=== PATIENT | female | born 1960 | race Caucasian/White ===

== ENCOUNTER 2017-08-03 01:47 | Emergency (ER) | payer OTHER ==
[~2017-08-03] VITALS: Ht 170.2 cm; Wt 111.2 kg
[~2017-08-03 01:47] MED LIST: 384 PO; FLUTICASON0.05 MG/A1; GLUCOSAMINE500 M2 PO; KETOPROFEN PO; LEVOTHROID SO0.05 MG PO; LISINOPRIL HCTZ1 TAB PO; ORPHENADRINE PO; PRI20 PO; SIMVASTATIN40 MG PO; [UNRECOGNIZED DRUG - OTHER] PO
[2017-08-03 01:52] VITALS: Ht 170.2 cm; Wt 111.2 kg
[2017-08-03 02:26] VITALS: BP 155/99
== END 2017-08-03 02:26 | disposition home or self-care (01) ==
LOC: ED 01:47
DX: H60.91 Unspecified otitis externa, right ear (principal); H60.11 Cellulitis of right external ear; I10 Essential (primary) hypertension; E07.9 Disorder of thyroid, unspecified; Z88.2 Allergy status to sulfonamides